=== PATIENT | female | born 1960 | race Caucasian/White ===

== ENCOUNTER 2017-05-03 15:56 | Outpatient (CLI) ==
[2014-10-13 10:23] VITALS: BMI 31.6
--- NOTE | 2017-05-03 16:17 | DI ---
Exam: Chest two-view HISTORY: Cough. Comparison: 02/04/2015. FINDINGS: Two views of the chest demonstrate moderately expanded lungs with no evidence of pneumoni a or edema. Calcified granulomata are again noted. The heart is normal in size and configuration. T he pulmonary vasculature is not congested. The skeletal structures are intact. There are degenerati ve findings in the spine. IMPRESSION: No acute cardiopulmonary disease.
== END 2017-05-03 15:57 | disposition home or self-care (01) ==
LOC: RAD 15:56
PROVIDERS: ATTEND Internal Medicine
DX: R05 Cough (principal)

== ENCOUNTER 2017-07-25 12:48 | Outpatient (CLI) ==
[2014-10-13 10:23] VITALS: BMI 31.6
--- NOTE | 2017-07-25 14:29 | CT ---
EXAM: CT maxillofacial/paranasal sinuses without contrast HISTORY: Sinusitis COMPARISON: None TECHNIQUE: Helical axial CT of the paranasal sinuses was obtained without contrast with coronal and sagittal reconstructions. FINDINGS: The frontal, sphenoid, ethmoid and bilateral maxillary sinuses demonstrate no evidence of significant mucosal thickening, mucous retention cysts, polyps, masses or air-fluid levels. The ostio meatal units are widely patent and demonstrate normal appearing uncinate processes and infundibuli. T he nasal septum is not deviated. There is no significant nasal spur. The orbits are unremarkable. The lamina papyracea, cribriform plate and ethmoidal fovea are intact and symmetric. There is no signifi cant pneumatization of the turbinates. There are no Sadia or Onodi cells seen. There is some opacifi cation of mastoid air cells on the right. There are no acute soft tissue or osseous abnormalities. IMPRESSION: 1. Paranasal sinuses are clear with no evidence for significant membrane thickening. 2. Minimal chronic mastoiditis on the right.
== END 2017-07-25 12:49 | disposition home or self-care (01) ==
LOC: RAD 12:48
PROVIDERS: ATTEND Internal Medicine
DX: J32.9 Chronic sinusitis, unspecified (principal)

== ENCOUNTER 2018-07-31 08:47 | Outpatient (CLI) ==
[2014-10-13 10:23] VITALS: BMI 31.6
--- NOTE | 2018-07-31 09:31 | MAMMO ---
EXAM: Bilateral digital screening mammogram (2-D and 3-D) History: Screening Comparison: Bilateral mammogram 02/16/2017 Findings: MLO and CC views of bilateral breasts demonstrate heterogeneously dense breast parenchyma which can obscure small lesions. CAD was reviewed by the radiologist. Tomosynthesis was performed. There are no dominant masses, no suspicious microcalcifications and no architectural distortion. Impression: Stable negative mammogram. Recommend followup routine screening mammography in 1 year. BIRADS 1
== END 2018-07-31 08:48 | disposition home or self-care (01) ==
LOC: RAD 08:47
PROVIDERS: ATTEND Internal Medicine
DX: Z12.31 Encounter for screening mammogram for malignant neoplasm of breast (principal)
CPT/HCPCS: 77067

== ENCOUNTER 2018-11-01 07:42 | Outpatient (CLI) ==
[2014-10-13 10:23] VITALS: BMI 31.6
--- NOTE | 2018-11-01 13:32 | CT ---
EXAM: CT chest with and without contra HISTORY: Axillary bilateral lymph nodes, left supraclavicular lymph nodes COMPARISON: None TECHNIQUE: CT chest performed with and without intravenous contrast. Coronal and sagittal reformatt ed images obtained. FINDINGS: The thoracic inlet unremarkable. Heart normal in size. No pericardial effusion. Aorta n ormal in caliber. Small hiatal hernia. No lymphadenopathy in the chest. No acute abnormalities of the bones. Degenerative change in the spine. There is a stable liver cyst. Central airway patent. Granulomas calcification left lung. 3 mm micronodule left lung image 50, unchanged from 2015, most consistent with benign etiology. No airspace consolidation. No pleural effusion. No pneumothorax. IMPRESSION: 1. No acute cardiopulmonary process. 2. No lymphadenopathy identified in the chest.
== END 2018-11-01 07:43 | disposition home or self-care (01) ==
LOC: RAD 07:42
PROVIDERS: ATTEND Internal Medicine
DX: R59.0 Localized enlarged lymph nodes (principal)

== ENCOUNTER 2018-11-13 08:42 | Outpatient (CLI) ==
[2014-10-13 10:23] VITALS: BMI 31.6
--- NOTE | 2018-11-13 09:24 | US ---
EXAM: Ultrasound of the chest. History: Bilateral neck palpable abnormalities. Technique: Multiple sonographic images through the chest were obtained. Color duplex Doppler was us ed to interrogate vascular flow. Findings / impression: 0.7 cm x 0.4 cm benign lymph node within the right neck supraclavicular regio n. 3.1 cm x 1.2 cm x 2.1 cm isoechoic area seen within the left supraclavicular neck is probably a b enign lipoma. There are no suspicious findings.
== END 2018-11-13 08:43 | disposition home or self-care (01) ==
LOC: RAD 08:42
PROVIDERS: ATTEND Internal Medicine
DX: R22.1 Localized swelling, mass and lump, neck (principal)